=== PATIENT | female | born 1975 | race African-American/Black ===

== ENCOUNTER → 2019-01-29 | Outpatient (CLI) | payer BC ==
--- NOTE | 2019-01-29 14:57 | KCIC ---
Indication:Enlarged uterus. Menorrhagia. TECHNIQUE: Grayscale, color Doppler and spectral waveform is of the abdomen obtained. COMPARISON:None FINDINGS: Endometrial stripe measures 6 mm in thickness and is within normal limits. Uterus measures 9.1 x 5.2 x 5.3 cm and is retroverted. Right ovary measures 3.7 x 2.4 x 1.9 cm with evidence of blood flow. Left ovary measures 2.6 x 1.6 x 2.1 cm and shows evidence of blood flow. No free pelvic fluid. IMPRESSION: Bilateral ovaries show evidence of blood flow. No fibroids noted. Electronically signed by: Dada Burgos DO (01/29/2019 2:54 PM) [facility]
--- NOTE | 2019-01-30 09:11 | KCIC ---
BILATERAL SCREENING MAMMOGRAM History: Routine screening. Comparison: Bilateral mammogram 09/27/2015. Technique: Routine bilateral digital mammogram views were obtained. Findings: Breast Tissue Density D :The breasts are extremely dense, which lowers the sensitivity of mammography. There are no dominant masses, suspicious microcalcifications, or architectural distortion. IMPRESSION: No mammographic evidence of malignancy. Recommend routine screening. BI-RADS category 1: Negative. The images were reviewed with computer aided detection. Patient information is entered into the reminder system with a target due date for the next screening mammogram. Mammography is the most sensitive method for finding small breast cancers, but it does not detect them all and is not a substitute for careful clinical examination. A negative mammogram does not negate a clinically suspicious finding and should not result in delay in biopsying a clinically suspicious abnormality. "Our facility is accredited by the [employer] Mammography Program." Electronically signed by: Augustine Uribe MD (01/30/2019 9:08 AM) [id number]
== END | disposition home or self-care (01) ==
LOC: KCIC US 12:55
PROVIDERS: ATTEND Obstetrics & Gynecology
DX: Z12.31 Encounter for screening mammogram for malignant neoplasm of breast (principal); N85.2 Hypertrophy of uterus; N92.0 Excessive and frequent menstruation with regular cycle
CPT/HCPCS: 76856; 77067